=== PATIENT | male | born 1975 | race Caucasian/White ===

== ENCOUNTER → 2019-03-22 | Outpatient (CLI) | payer OTHER ==
--- NOTE | 2019-03-22 11:38 | MR ---
EXAMINATION TYPE: MR lumbar spine wo con DATE OF EXAM: 03/22/2019 COMPARISON: NONE HISTORY: Low back pain / Radiculopathy, lumbar TECHNIQUE: T1 and T2 axial and sagittal images of the lumbar spine are submitted. FINDINGS: There is no abnormal signal seen within the visualized spinal cord or paraspinal soft tissu es. Vertebral hemangioma L1. At L1-2 there is no degenerative disc disease, disc herniation, canal stenosis, or foraminal encroach ment. At L2-3 there is mild disc desiccation and loss of disc space. Mild hypertrophy of the facets. No foc al herniation. No Canal stenosis. There is mild circumferential disc bulging with mild bilateral fora edinson encroachment. At L3-4 there is no disc herniation. There is hypertrophy of the facet joints. Neural foramina remain patent bilaterally. Mild broad-based disc bulging centrally. Findings slightly greater paracentrally the right. No Canal stenosis. At L4-5 there is hypertrophy of the facets. Mild broad-based central disc bulging with flattening of the thecal sac. Neural foramina remain patent bilaterally. No focal disc herniation. At L5-S1 there is there is a disc herniation centrally and paracentrally the right with displacement of the exiting right nerve root. Degenerative disc disease noted. Neural foramina are patent. IMPRESSION: 1. There is a moderate-sized central and right paracentral disc herniation L5-S1 with displacement of the exiting nerve root in mild flattening of the thecal sac. 2. Degenerative disc disease L2-L3 and L5-S1. 3. Multilevel facet hypertrophy with disc bulging noted at L2-3 and L3-4 as discussed above with no d efinite nerve root impingement or canal stenosis.
== END | disposition home or self-care (01) ==
LOC: RADMRIMAIN 10:20
PROVIDERS: ATTEND Physical Medicine & Rehabilitation
DX: M51.86 Other intervertebral disc disorders, lumbar region (principal); M51.37 Other intervertebral disc degeneration, lumbosacral region; M47.817 Spondylosis without myelopathy or radiculopathy, lumbosacral region
CPT/HCPCS: 72148

== ENCOUNTER → 2019-09-12 | Outpatient (CLI) | payer OTHER ==
[2019-09-12 10:43] VITALS: BP 136/92; PULSE 113; RESP 20
--- NOTE | 2019-09-12 11:41 | P.PAINCN ---
History of Present Illness - Reason for Consult Consult date: 09/12/19 - History of Present Illness This is 43 years old male with a chronic history of severe low back pain, started 8 years ago, he denies any initiating event, but he reported that, he works as a director of construction, and he does a lot of physical activity and lifting, intensity of the pain increased over time, especially last year, he did physical therapy without any benefit, and he is currently on NSAIDs and Ultram and he gets minimal benefit from it, he reported that the pain is constant and localized in the low back area with occasional radiation to the lower extremity, he feels some numbness and tingling sensation in his right foot, he is able to ambulate without help, he had no weakness in the lower extremities he had no change in bowel movement or urination, he had no fever or night sweats, intensity of the pain interferes with the quality of life and his ability to do activities of daily livings, intensity of the pain 6-7/10 increased to 10 over 10 with activity. Past Medical History Past Medical History: Hyperlipidemia Additional Past Medical History / Comment(s): STATES ANTIBODIES FOR HEP C., SEIZURE X1 (OCTOBER 2018-UNKNOWN CAUSE), HX COLON POLYPS, CHRONIC BACK PAIN, HERNIATED DISCS. History of Any Multi-Drug Resistant Organisms: None Reported Past Surgical History: No Surgical Hx Reported Additional Past Surgical History / Comment(s): COLONOSCOPY WITH POLYPS Past Anesthesia/Blood Transfusion Reactions: No Reported Reaction, Motion Sickness Past Psychological History: No Psychological Hx Reported Smoking Status: Current every day smoker Past Alcohol Use History: None Reported Additional Past Alcohol Use History / Comment(s): SMOKES 3-4 CIGARETTES /DAY. STARTED AGE 19. VAPES ALSO. Past Drug Use History: Marijuana Additional Drug Use History / Comment(s): NO CURRENT MARIJUANA- STATES ON PROBATION - Past Family History Mother Family Medical History: No Reported History Medications and Allergies Home Medications Medication Instructions Recorded Confirmed Type Atorvastatin [Lipitor] 20 mg PO HS 09/11/19 09/12/19 History Cholecalciferol [Vitamin D3 (25 2,000 unit PO DAILY 09/11/19 09/12/19 History Mcg = 1000 Iu)] Ibuprofen [Motrin] 800 mg PO QID PRN 09/11/19 09/12/19 History traMADol HCL [Ultram] 50 mg PO Q6HR PRN 09/11/19 09/12/19 History Allergies Allergy/AdvReac Type Severity Reaction Status Date / Time Sulfa (Sulfonamide Allergy Unknown BURNING Verified 09/12/19 10:31 Antibiotics) STOMACH, RASH, ITCHING Physical Exam Vitals: Vital Signs Pulse Resp BP Pulse Ox 09/12/19 10:32 113 H 20 136/92 98 Social history= smoker , social EtOH, no illegal drug use REVIEW OF ORGAN SYSTEMS: CONSTITUTIONAL: No fevers or chills. No recent weight loss. EYES: denies troubles with vision. HEENT: No difficulties with hearing. No nosebleeds. No difficulty swallowing. RESPIRATORY: Denies any troubles with breathing or dyspnea on exertion. CARDIOVASCULAR: Denies any chest pain, palpitations, or recent heart attacks. GASTROINTESTINAL: Denies fatty food intolerance. Has change in bowel habits and gas bloat. GENITOURINARY: Denies any blood in urine. Has increased urinary frequency. NEUROLOGICAL: + Occasional numbness and tingling along the distal extremities. No seizure disorders or headaches. MUSCULOSKELETAL: Has back pain. SKIN:no skin cancer. No rash. PSYCHIATRIC: Denies current depression or suicidal thoughts. ENDOCRINE: Denies current thyroid disorders. Denies any blood sugar glucose intolerance. HEME/LYMPHATIC: Denies any lumps and bumps around the neck. History of deep venous thrombosis. ALLERGY/IMMUNOLOGY: No immunoglobulin therapy. No immune deficiencies. BREAST: Denies current breast lumps, pain or nipple discharge. Physical Examinations : Constitutiona : Cooperative , not in acute distress . HEENT : nech : supple , no Lymphadenopathy , normal thyroid size . : eyes no ptosis , no icterus, no photophobia . : ENT normal of hearing , normal oropharynx , no Thrush . Respiratory : Chest clear to auscultations Bilaterally , no wheezing , no Rhonchi . Cardiovascula : regular rate and rhythem , S1 , S2 , no S3 , no S4. Gastrointestina : abdomen soft no tenderness , bowel sounds , no organomegally . Genitourinary : Defferred . neurologic : Cranial nerve II to XII intact , no focal neurological deffecit . psychatric : alert , oriented X 3 , appropriate affect , intact judgment and insight . Lymphatic : no Lymphadenopathy . musculoskeltal : Lumber spine moter stegnth lower extremities ,thigh and legs 5/5 Right side , 5/5 Left side deep tendon reflexes : normal Knee Jerk , normal ankle Jerk lumber facet Loading Test= positive Right , positive Left Range of motion of the lumbar spine Flexion 30 degrees, extension 10 degrees strait leg raising test , positive at 45 degree Fabere test= positive Right , and positive left . Sever tenderness over the Sacroiliac joint on the Right , and Left sides Results Comments: MRI of the lumbar spine that [facility] 03/22/2019= L2 3 L3 4 and L4-L5, lumbar facet arthropathy, and L5-S1 lumbar disc herniation Assessment and Plan Plan: Assessment and plan=1-chronic severe low back pain secondary to lumbar spondylosis and lumbar facet arthropathy. 2-lumbar herniated disc disease. He will be a good candidate, to have diagnostic medial branch block lumbar area L2, L3, L4, L5 x2 and RFA if it is positive Patient should continue his current medication Motrin and Ultram as prescribed by his primary care Time with Patient: Greater than 30 PQRS Measure Charge Sheet Measure #130: Documentation of Current Meds in Medical Chart: Patient's medications documented in chart Measure #226: Tobacco Use: Screen & Cessation Intervention: Pt screened for tobacco use AND intervention given Measure #111: Pneumonia Vaccination: Pneumococcal vaccine NOT administered or previously given Measure #47: Advance Care Plan: Advance care planning discussed & documented, pt chose/unable to give Measure #412: Opioid Treatment Agreement: No documentation of signed opioid treatment agreement Measure #408: Opioid Therapy Follow-up Evaluation: Patient had NO f/u eval minimum every 3 months during opioid therapy Measure #317: Preventitive Care & Scrn High Bld Press & F/U: Normal blood pressure, f/u not required Measure #128: Body Mass Index (BMI) Screening & Follow-up: BMI documented within normal parameters Measure #131: Pain Assessment & Follow-up: Pain positive & plan documented, Follow-up scheduled Measure #431: Unhealthy Alcohol Use Preventative Care & Scrn: Patient not identified as an unhealthy alcohol user PQRS Narrative: Smoking Status Current every day smoker Blood Pressure 136/92 Pain Intensity [Neck] 7 Pain Intensity [Lower Back] 7 Scale Used Numeric (1 - 10) Hx Alcohol Use (MH) No Home Medications: Ambulatory Orders Atorvastatin [Lipitor] 20 mg PO HS 09/11/19 Cholecalciferol [Vitamin D3 (25 Mcg = 1000 Iu)] 2,000 unit PO DAILY 09/11/19 Ibuprofen [Motrin] 800 mg PO QID PRN 09/11/19 traMADol HCL [Ultram] 50 mg PO Q6HR PRN 09/11/19
== END | disposition home or self-care (01) ==
LOC: PNWHC3 09:30
PROVIDERS: ATTEND Specialist
DX: G89.29 Other chronic pain (principal); M51.26 Other intervertebral disc displacement, lumbar region; M47.816 Spondylosis without myelopathy or radiculopathy, lumbar region; E78.5 Hyperlipidemia, unspecified; M46.96 Unspecified inflammatory spondylopathy, lumbar region; F17.200 Nicotine dependence, unspecified, uncomplicated; Z79.1 Long term (current) use of non-steroidal anti-inflammatories (NSAID); Z79.891 Long term (current) use of opiate analgesic; Z79.899 Other long term (current) drug therapy; Z88.2 Allergy status to sulfonamides
CPT/HCPCS: 99211

== ENCOUNTER → 2020-06-04 | Outpatient (CLI) | payer OTHER ==
[2020-06-04 09:59] VITALS: BP 130/91; PULSE 90; RESP 18; TEMP 97.7
--- NOTE | 2020-06-04 10:12 | P.PN ---
Subjective Progress Note Date: 06/04/20 Spencer a 44-year-old gentleman presented today for follow-up and we'll see him in September prior to the code endemic for his low back pain. He continues to have low back pain across his back which describes a soreness and aching. He has a sharp pain she feels like a brenda is in the spine. He also describes pain shooting down his right leg into the foot. He has numbness tingling and weakness in the right leg compared to left. He denies any bowel or bladder incontinence. Denies any chest patient's of breath. Denies any neck pain or upper extremity weakness numbness tingling. He had an MRI done of his lumbar spine which showed degenerative disc disease as well as mild disc bulging. The has seen Dr. Velasco in the past and they rule out any hip joint dysfunction. 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 He is tender palpation of the lower lumbar area. Facet loading is positive bilaterally. His right straight leg raise is positive. He has pain with internal/external rotation of the hip joints which was pain in the anterior hip bilaterally. There is not a lot of pain with internal rotation. Sacroiliac joints: Nontender to palpation, JHOAN is negative, Gaenselon negative Neuro exam: Normal sensation in bilateral upper extremities, deep tendon reflexes are 2+ bilateral upper extremities. Normal sensation in bilateral lower extremities. Deep tendon reflexes are 2+ in left lower extremity, patellar reflexes 1+ compared to the left side. Psych exam: Cooperative, appropriate mood Assessment and Plan Assessment: #1 lumbar radiculopathy #2 lumbar spondylosis without myelopathy Plan: We had discussion with the patient today regarding his chronic pain and treatment plans. We discussed that since is having radicular symptoms which are more prominent than on her previous visit I would recommend a lumbar epidural steroid injection at the L4-L5 level. We'll monitor follow up with patient after that CVA continues to have low back pain with improved radicular symptoms. If the back pain persists with discussed medial branch blocks and potential radio frequency ablation in detail. The patient agrees and would like to move forward. No medications were prescribed today. The patient uses [id number] ibuprofen as needed
== END | disposition home or self-care (01) ==
LOC: PNWHC3 09:41
PROVIDERS: ATTEND Hospitalist
DX: M47.26 Other spondylosis with radiculopathy, lumbar region (principal)
CPT/HCPCS: 99211

== ENCOUNTER 2020-07-15 10:06 | Day surgery (SDC) | payer OTHER ==
[2020-07-14 10:25] VITALS: BMI 25.8
[~2020-07-15 10:06] MED LIST: LACTATED RINGERS 1,000 ML IV SCH
[2020-07-15 10:44] VITALS: RESP 16; TEMP 98.4
[2020-07-15] MEDS ORDERED: TRIAMCINOLONE ACETONIDE 40 MG/ML 1 ML VIAL ONE (11:08)
[2020-07-15] MEDS ORDERED: ROPIVACAINE 5MG/ML 20ML VIAL ONE (11:08)
[2020-07-15] MEDS ORDERED: IOPAMIDOL M200 10 ML VIAL ONE (11:08)
--- NOTE | 2020-07-15 11:23 | P.PCN ---
Date of Procedure: 07/15/20 Surgeon: Angelique Garcia Pathology: none sent Condition: stable Disposition: PACU Description of Procedure: PREOPERATIVE DIAGNOSIS: 1-Lumbar radiculopathy 2- Lumber Degenerative Disc Diseases. POSTOPERATIVE DIAGNOSIS: 1-Lumbar radiculopathy. 2-Lumbar Degenerative Disc Diseases PROCEDURE 1. Lumbar epidural steroid injection under fluoroscopic guidance at the L5-S1 level in the right paramedian approach. 2. Lumbar epidurogram. ANESTHESIA: Local with 1% lidocaine; and IV moderate conscious sedation with Versed and fentanyl EBL: Minimal PROCEDURE INDICATION: The patient with low back pain and radiculitis symptoms unresponsive to conservative treatment. Fluoroscopy was used to optimize visualization of the needle placement and to maximize safety. PROCEDURE DESCRIPTION / TECHNIQUE: The patient was seen and identified in the preoperative area. Risks, benefits, complications including but not limited to infections ,bleeding ,allergic reaction to the medications ,nerve damage and not complete pain relief , and alternatives were discussed with the patient. The patient agreed to proceed with the procedure and signed the consent. IV was started, and vital signs were stable. Patient was taken to the OR and time out was completed. The patient was placed in the prone position on procedure table and a pillow was placed under the abdomen to reduce lumbar lordosis. The lumbosacral area was prepped and draped in the usual sterile fashion with ChloraPrep.Patient was closely monitored during the procedure. Conscious sedation was used during the procedure to decrease patients anxiety. Vital signs were monitered during the entire procedure. Using anterior-posterior fluoroscopy, the L5-S1 interlaminar space was identified and the skin over this site was marked and then infiltrated with 1% lidocaine subcutaneously. Subsequently, a 20-gauge Tuohy epidural needle was inserted and advanced toward the epidural space using the Loss of resistance to air technique and guided by AP and lateral fluoroscopy. The correct needle position in the epidural space was verified with the injection of 1 mL of the water soluble contrast dye Omnipaque 180 contrast and observing an excellent epidurogram with the epidural spread of the dye, after negative aspiration for blood and CSF and in the absence of paresthesias. Again after negative aspiration, a 7 ml mixture containing 80 mg of Kenalog and 5 ml of preservative free Normal Saline, and 1 ml of preservative free ropivacaine 0.5% solution was injected and a washout of epidurogram was seen. Needle was withdrawn intact, skin was cleansed, and bandages were applied. patient tolerated procedure well and was transferred to PACU in stable condition.A copy of the needle placement picture was saved to the fluoroscopy machine. COMPLICATIONS: None DISPOSITION / PLANS: The patient was placed in a supine position and transferred to the recovery area in a stable condition for observation. There was no evidence of lower extremity motor or sensory deficit after the procedure. Patient was discharged from the recovery room after meeting discharge criteria. Home discharge instructions were given to the patient by the staff. The patient was reexamined prior to discharge. The patient will schedule a follow up in the clinic in 2-4 weeks.
[2020-07-15 11:40] VITALS: PULSE 65
[2020-07-15 11:44] VITALS: BP 103/66
--- NOTE | 2020-07-15 15:52 | FL ---
Fluoroscopy HISTORY: Pain 4 seconds fluoroscopy time supplied to the referring clinician. 2 intraoperative C-arm images docume nt the procedure. See dictated report from anesthesia.
== END 2020-07-15 11:58 | disposition home or self-care (01) ==
LOC: ORPAIN 10:06
PROVIDERS: ATTEND Anesthesiology
DX: M51.16 Intervertebral disc disorders with radiculopathy, lumbar region (principal); Z88.2 Allergy status to sulfonamides
CPT/HCPCS: 62323; J3301; Q9966; J2795

== ENCOUNTER → 2020-07-28 | Outpatient (CLI) | payer OTHER ==
[2020-07-28 10:59] VITALS: BP 120/84; PULSE 103; RESP 18; TEMP 98.1
--- NOTE | 2020-07-28 11:13 | P.PN ---
Subjective Progress Note Date: 07/28/20 This is follow-up visit for this 44 years old male with a chronic history of severe low back pain his diagnosed with lumbar herniated disc disease and lumbar spondylosis with lumbar facet arthropathy without myelopathy, recently we have done lumbar epidural steroid injections under fluoroscopy guidance, patient reports he had 0 benefit from anti-continued to have the same pain, localized in the low back area with occasional radiation to the lower extremity, he denies any motor or sensory deficit he denies any change in the bowel movement or urination denies any fever or night sweats, the pain is constant and increases with any activity interfere with the quality of life and activity of daily livings Objective - Vital Signs Vital signs: Vital Signs Temp 98.1 F 07/28/20 10:55 Pulse 103 H 07/28/20 10:55 Resp 18 07/28/20 10:55 BP 120/84 07/28/20 10:55 Pulse Ox 95 07/28/20 10:55 Intake & Output 07/27/20 07/28/20 07/28/20 18:59 06:59 18:59 Weight 81.647 kg - Exam Physical Examinations : Constitutiona : Cooperative , not in acute distress . HEENT : nech : supple , no Lymphadenopathy , normal thyroid size . : eyes no ptosis , no icterus, no photophobia . neurologic : Cranial nerve II to XII intact , no focal neurological deffecit . psychatric : alert , oriented X 3 , appropriate affect , intact judgment and insight . Lymphatic : no Lymphadenopathy . musculoskeltal : Lumber spine moter stegnth lower extremities ,thigh and legs 5/5 Right side , 5/5 Left side deep tendon reflexes : normal Knee Jerk , normal ankle Jerk lumber facet Loading Test= positive Right , positive Left Range of motion of the lumbar spine Flexion 30 degrees, extension 10 degrees strait leg raising test , positive at 45 degree Fabere test= positive Right , and positive left . Sever tenderness over the Sacroiliac joint on the Right , and Left sides Results MRI of the lumbar spine that [facility] 03/22/2019= L2 3 L3 4 and L4-L5, lumbar facet arthropathy, and L5-S1 lumbar disc herniation Assessment and Plan Plan: Assessment and plan=1-chronic severe low back pain secondary to lumbar spondylosis and lumbar facet arthropathy. 2-lumbar herniated disc disease. Patient had no benefit from lumbar epidural steroid injections He will be a good candidate, to have diagnostic medial branch block lumbar area L3, L4, L5 x2 and RFA if it is positive Patient should continue his current medication Motrin and Ultram as prescribed by his primary care Time with Patient: Greater than 30 PQRS Measure Charge Sheet Measure #130: Documentation of Current Meds in Medical Chart: Patient's medications documented in chart Measure #226: Tobacco Use: Screen & Cessation Intervention: Pt screened for tobacco use AND intervention given Measure #111: Pneumonia Vaccination: Pneumococcal vaccine NOT administered or previously given Measure #47: Advance Care Plan: Advance care planning discussed & documented, pt chose/unable to give Measure #412: Opioid Treatment Agreement: No documentation of signed opioid treatment agreement Measure #408: Opioid Therapy Follow-up Evaluation: Patient had NO f/u eval minimum every 3 months during opioid therapy Measure #317: Preventitive Care & Scrn High Bld Press & F/U: Normal blood pressure, f/u not required Measure #128: Body Mass Index (BMI) Screening & Follow-up: BMI documented within normal parameters Measure #131: Pain Assessment & Follow-up: Pain positive & plan documented, Follow-up scheduled Measure #431: Unhealthy Alcohol Use Preventative Care & Scrn: Patient not identified as an unhealthy alcohol user Time with Patient: Less than 30
== END | disposition home or self-care (01) ==
LOC: PNWHC3 10:45
PROVIDERS: ATTEND Specialist
DX: G89.29 Other chronic pain (principal); M47.816 Spondylosis without myelopathy or radiculopathy, lumbar region; M51.26 Other intervertebral disc displacement, lumbar region
CPT/HCPCS: 99211

== ENCOUNTER 2020-10-03 07:24 | Day surgery (SDC) | payer OTHER ==
[2020-09-30 11:01] VITALS: BMI 25.8
[2020-10-03 08:00] VITALS: RESP 16; TEMP 98
[2020-10-03] MEDS ORDERED: methylPREDNISolone ACETATE 40 MG/ML 1 ML VIAL ONE (08:28)
[2020-10-03] MEDS ORDERED: IOPAMIDOL M200 10 ML VIAL ONE (08:28)
[2020-10-03] MEDS ORDERED: ROPIVACAINE 5MG/ML 20ML VIAL ONE (08:28)
--- NOTE | 2020-10-03 08:41 | P.PCN ---
Date of Procedure: 10/03/20 Description of Procedure: Procedure: BILATERAL L4-5, L5-S1 Diagnosis: Lumbar spondylosis without myelopathy Anesthesia: Local Imaging: Fluoroscopy was used, images where saved to the medical record The patient was seen and examined in the [facility]. Procedure risks and benefits were fully reviewed with the patient. The goal of the procedure is to inject medication onto the medial branch or small nerves that innervate the facet joints. In this way, we can hopefully identify which of these joints, if any, may be contributing to their pain. Informed consent for procedure was obtained. The patient was taken into the office fluoroscopy procedure room and placed prone on the table. A pillow was placed under the abdomen to reduce lumbar lordosis. Vital signs were closely monitored during the procedure. The skin ov er the area was prepped with Betadine X 3 and draped in usual sterile manner. Sterile technique was observed throughout procedure. Under biplanar fluoroscopic guidance, the target injection area of the L4, L5, Sacral Ala were targeted. A 25 gauge 31/2 inch spinal needle was then placed at the most medial and superior aspect of the transverse process near the "eye of the Jarad dog". Aspiration for blood was negative. 1 cc of 0.5% Ropivacaine 40 mg of Depo- Medrol and total was injected into the targeted areas separately. [place] were withdrawn intact. No complications were noted during the procedure. The patient tolerated the procedure well. The patient was placed in supine position and transferred to the recovery area for observation and remained stable until discharged home. Home discharge instructions were given to the patient by the staff. Repeat in 2 weeks
[2020-10-03 09:01] VITALS: BP 137/95; PULSE 68
--- NOTE | 2020-10-03 09:49 | FL ---
Fluoroscopy HISTORY: Pain 7 seconds fluoroscopy time supplied to the referring clinician. 4 intraoperative C-arm images docume nt the procedure. See dictated report from anesthesia.
== END 2020-10-03 09:05 | disposition home or self-care (01) ==
LOC: ORPAIN 07:24
PROVIDERS: ATTEND Hospitalist
DX: M47.816 Spondylosis without myelopathy or radiculopathy, lumbar region (principal); Z88.2 Allergy status to sulfonamides
CPT/HCPCS: 64493; 64494; J1030; Q9966; J2795

== ENCOUNTER → 2020-10-27 | Outpatient (CLI) | payer OTHER ==
[2020-10-27 13:16] VITALS: BP 122/92; PULSE 78; RESP 18; TEMP 97.6
--- NOTE | 2020-10-27 13:24 | P.PN ---
Subjective Progress Note Date: 10/27/20 This is a 44-year-old gentleman with history of back pain with radiation to the lower extremities down to the feet as she states. The patient did not respond to epidural steroid injection and he not only 20% of relief after diagnostic lumbar medial branch block. The patient is back into using marijuana and he has noticed significant improvement in his pain. Patient denies new-onset weakness, bowel/bladder incontinence, or any other signs or symptoms of cauda equina syndrome. There are no signs of acute intoxication, and no indications of medication diversion or overuse. In addition to above, 13-point review of systems is also negative for chest pain, shortness of breath, changes in vision, changes in hearing, new onset weakness, abdominal pain, diarrhea, extreme fatigue, malaise, fever, skin changes, homicidal or suicidal ideation, or bowel or bladder incontinence. Vital Signs: Reviewed in EMR Gen: AAOx3, NAD HEENT: PERRLA,hearing grossly normal Pulm: resp unlabored Neck: supple, trachea midline Neuro exam of the lower extremities: Normal muscle strength in the lower extremities bilaterally Straight leg raising test: Lico's test: Range of motion of the lumbar spine: Facet loading test: Tenderness in the paravertebral musculature: Neuro: CN II-XII grossly intact, Imaging: Reviewed in EMR/chart Assessment: Lumbar spondylosis without myelopathy Lumbar DDD Plan: 1. Explanation: Opioid and psychological risk scores were reviewed. Diagnoses, prognoses, and multiple treatment options including but not limited to physical therapy, interventional therapies, adjuvant medical therapies, narcotic medication therapies, and surgery were discussed with the patient and all questions were answered to the patient's satisfaction. 2. Opioid agreement: Signed with the patient and the patient is warned not to use opioids while driving or before driving and not to combine opioids with benzodiazepines or alcohol. 3. Counseling: The patient was counseled extensively on SMOKING CESSATION, BODY MASS INDEX, EXERCISE. Specifically, the patient was instructed regarding the importance of smoking cessation, obesity, and exercise in the context of both chronic pain and overall health. 4. Procedures: Patient did not respond to interventional pain procedures 5. Consultations: None. The patient understands that as long as he was brought to his muscle strength in the lower extremities and as long as he is able to control his bowel and bladder there is no need for surgery however once the symptoms start to happen and he will need to see a neurosurgeon. 6. Investigations: None 7. Medications: None. The patient is using marijuana for his pain 8. Disposition: Return to clinic as needed 9. Maps were reviewed and were appropriate. Objective - Vital Signs Vital signs: Vital Signs Temp 97.6 F 10/27/20 13:11 Pulse 78 10/27/20 13:11 Resp 18 10/27/20 13:11 BP 122/92 10/27/20 13:11 Pulse Ox 99 10/27/20 13:11
== END ==
LOC: PNWHC3 13:01
PROVIDERS: ATTEND Anesthesiology
DX: M47.816 Spondylosis without myelopathy or radiculopathy, lumbar region (principal); M51.36 Other intervertebral disc degeneration, lumbar region; F17.200 Nicotine dependence, unspecified, uncomplicated
CPT/HCPCS: 99211

== ENCOUNTER → 2020-11-17 | Outpatient (CLI) | payer OTHER ==
--- NOTE | 2020-11-17 10:05 | P.PN ---
Progress Note - Text Progress Note Date: 11/17/20 This is a follow-up visit for this 44 years old male with a chronic history of severe low back pain, with radiation to the lower extremity,he is diagnosed with lumbar herniated disc disease ,and lumbar spondylosis with lumbar facet arthropathy, we have done an interventional pain management procedure lumbar epidural steroid injection, he had no benefit from it, and later on we did diagnostic medial branch block, he had only 20% improvement of his pain after the block, for this reason patient was not a candidate to have an RFA of the medial branch, the patient came here today, for follow-up visit he was very belligerent, he was yelling to the staff and myself, he is requesting a solution for this problem, I explained to him that we can't do anymore interventional pain management procedures, because he did not respond to it, the patient currently using marijuana , although certainly cannot do medication management, he could follow up with the spine surgeon for evaluation for possible surgical interventions, and patient will follow up in the pain clinic when necessary
== END ==
CPT/HCPCS: 99211

== ENCOUNTER 2020-12-15 15:12 | Emergency (ER) | payer OTHER ==
[2020-12-15 15:20] VITALS: RESP 18; TEMP 97.8
[2020-12-15] MEDS ORDERED: CYCLOBENZAPRINE 10 MG TAB PO STA (15:43)
[2020-12-15] MEDS ORDERED: methylPREDNISolone SOD SUCCI 125 MG/2 ML VIAL IM STA (15:43)
[2020-12-15] MEDS ORDERED: KETOROLAC 15 MG/ML 1 ML VIAL IM STA (15:43)
--- NOTE | 2020-12-15 16:24 | ED ---
Back Pain HPI - General Chief Complaint: Back Pain/Injury Stated Complaint: Lower Back pain Time Seen by Provider: 12/15/20 15:21 Source: patient, RN notes reviewed Limitations: no limitations - History of Present Illness Initial Comments: Patient is a 45-year-old male that presents to the emergency room with chronic back pain. He notes that he came here for symptom management as the pain is become intolerable. He notes that he does have a history of back spasms and disc disease. He notes that he does have follow-up with his primary care and a specialist towards the end of the month. He noted that he was in significant amount of pain and discomfort while lying in bed during exam and interview. He denied any new onset of weakness numbness tingling bladder or bowel i ncontinence/retention. He denied any chest pain shortness of breath headache nausea vomiting diarrhea constipation fever fatigue chills. - Related Data Home Medications Medication Instructions Recorded Confirmed Atorvastatin [Lipitor] 20 mg PO HS 09/11/19 11/14/20 Cholecalciferol [Vitamin D3 (25 2,000 unit PO DAILY 09/11/19 11/14/20 Mcg = 1000 Iu)] Ibuprofen [Motrin] 800 mg PO QID PRN 09/11/19 11/14/20 Previous Rx's Medication Instructions Recorded Cyclobenzaprine HCl 10 mg PO TID 20 Days #60 tab 12/15/20 Allergies Allergy/AdvReac Type Severity Reaction Status Date / Time Sulfa (Sulfonamide Allergy Unknown BURNING Verified 12/15/20 15:17 Antibiotics) STOMACH, RASH, ITCHING Review of Systems ROS Statement: Those systems with pertinent positive or pertinent negative responses have been documented in the HPI. ROS Other: All systems not noted in ROS Statement are negative. Past Medical History Past Medical History: Asthma, Hyperlipidemia Additional Past Medical History / Comment(s): STATES ANTIBODIES FOR HEP C., SEIZURE X1 (OCTOBER 2018-UNKNOWN CAUSE), HX COLON POLYPS, CHRONIC BACK PAIN, HERNIATED DISCS.migraines, History of Any Multi-Drug Resistant Organisms: None Reported Past Surgical History: No Surgical Hx Reported Additional Past Surgical History / Comment(s): COLONOSCOPY, pain procedures Past Anesthesia/Blood Transfusion Reactions: Motion Sickness Past Psychological History: No Psychological Hx Reported Smoking Status: Current some day smoker, Vaper Past Alcohol Use History: None Reported Past Drug Use History: Marijuana - Past Family History Mother Family Medical History: No Reported History General Exam Limitations: no limitations General appearance: alert, in no apparent distress Head exam: Present: atraumatic, normocephalic, normal inspection Eye exam: Present: normal appearance, PERRL, EOMI. Absent: scleral icterus, conjunctival injection, periorbital swelling ENT exam: Present: normal exam, mucous membranes moist Neck exam: Present: normal inspection Respiratory exam: Present: normal lung sounds bilaterally. Absent: respiratory distress, wheezes, rales, rhonchi, stridor Cardiovascular Exam: Present: regular rate, normal rhythm, normal heart sounds. Absent: systolic murmur, diastolic murmur, rubs, gallop, clicks GI/Abdominal exam: Present: soft, normal bowel sounds. Absent: distended, tenderness, guarding, rebound, rigid Extremities exam: Present: normal inspection, full ROM (With significant pain), normal capillary refill, other (Positive well leg raise test bilaterally). Absent: tenderness, pedal edema, joint swelling, calf tenderness Back exam: Present: normal inspection, tenderness (Lower back) Neurological exam: Present: alert, oriented X3, CN II-XII intact Psychiatric exam: Present: normal affect, normal mood Skin exam: Present: warm, dry, intact, normal color. Absent: rash Course Vital Signs 12/15/20 15:17 Temperature 97.8 F Pulse Rate 81 Respiratory 18 Rate Blood Pressure 127/90 O2 Sat by Pulse 98 Oximetry Medical Decision Making - Medical Decision Making Patient is a 45-year-old male complaining of chronic back pain here for symptomatic management. 15 mg of Toradol, 10 mg of cyclobenzaprine, 125 mg of methylprednisolone ordered. Case discussed with Dr. Carrillo, patient can discharge home with follow-up to primary care and specialist as planned. Disposition Clinical Impression: Mechanical back pain, Chronic back pain Disposition: HOME SELF-CARE Condition: Stable Instructions (If sedation given, give patient instructions): Chronic Back Pain (DC) Additional Instructions: Please return to the Emergency Department if symptoms worsen or any other concerns. Follow-up primary care and specialist as planned. Take muscle relaxer as prescribed. Avoid any shortness activity or lifting. Is patient prescribed a controlled substance at d/c from ED?: No Referrals: Piter Murray MD [Primary Care Provider] - 1-2 days Time of Disposition: 16:24
[2020-12-15 17:03] VITALS: BP 127/68; PULSE 70
== END 2020-12-15 17:02 | disposition home or self-care (01) ==
LOC: EC 15:12
DX: M54.9 Dorsalgia, unspecified (principal); G89.29 Other chronic pain; J45.909 Unspecified asthma, uncomplicated; E78.5 Hyperlipidemia, unspecified; F17.200 Nicotine dependence, unspecified, uncomplicated; F12.90 Cannabis use, unspecified, uncomplicated
CPT/HCPCS: 99283; 96372 ×2; J2930; J1885

== ENCOUNTER 2020-12-15 22:25 | Emergency (ER) | payer OTHER ==
[2020-12-15 22:38] VITALS: BP 143/79; PULSE 120; RESP 18; TEMP 98.1
[2020-12-15] MEDS ORDERED: KETOROLAC 15 MG/ML 1 ML VIAL IM STA (22:56)
[2020-12-15] MEDS ORDERED: ACET/COD 300 MG/30 MG STARTER PACK 6 TAB BTL PO STA (22:57)
--- NOTE | 2020-12-15 23:02 | ED ---
Back Pain HPI - General Chief Complaint: Back Pain/Injury Stated Complaint: Lower back pain Time Seen by Provider: 12/15/20 22:46 Source: patient, RN notes reviewed Limitations: no limitations - History of Present Illness Initial Comments: 45-year-old male was recently discharged from the ER back again with back pain. He notes that he does have chronic back issues. He notes that he is unsuccessful several doctors for pain medicine. He notes that he declined any narcotic pain medication to help control symptoms. He notes that he does still have a follow-up with a fire management specialist at the end of the month. He notes that his Toradol wore off so he came back because he was in significant pain he notes that he wants pain control while here. Patient denied any other new complaints or symptoms. - Related Data Home Medications Medication Instructions Recorded Confirmed Atorvastatin [Lipitor] 20 mg PO HS 09/11/19 11/14/20 Cholecalciferol [Vitamin D3 (25 2,000 unit PO DAILY 09/11/19 11/14/20 Mcg = 1000 Iu)] Ibuprofen [Motrin] 800 mg PO QID PRN 09/11/19 11/14/20 Previous Rx's Medication Instructions Recorded Cyclobenzaprine HCl 10 mg PO TID 20 Days #60 tab 12/15/20 Allergies Allergy/AdvReac Type Severity Reaction Status Date / Time Sulfa (Sulfonamide Allergy Unknown BURNING Verified 12/15/20 22:38 Antibiotics) STOMACH, RASH, ITCHING Review of Systems ROS Statement: Those systems with pertinent positive or pertinent negative responses have been documented in the HPI. ROS Other: All systems not noted in ROS Statement are negative. Past Medical History Past Medical History: Asthma, Hyperlipidemia Additional Past Medical History / Comment(s): STATES ANTIBODIES FOR HEP C., SEIZURE X1 (OCTOBER 2018-UNKNOWN CAUSE), HX COLON POLYPS, CHRONIC BACK PAIN, HERNIATED DISCS.migraines, History of Any Multi-Drug Resistant Organisms: None Reported Past Surgical History: No Surgical Hx Reported Additional Past Surgical History / Comment(s): COLONOSCOPY, pain procedures Past Anesthesia/Blood Transfusion Reactions: Motion Sickness Past Psychological History: No Psychological Hx Reported Smoking Status: Current some day smoker, Vaper Past Alcohol Use History: None Reported Past Drug Use History: Marijuana - Past Family History Mother Family Medical History: No Reported History General Exam Limitations: no limitations General appearance: alert, in no apparent distress Head exam: Present: atraumatic, normocephalic, normal inspection Eye exam: Present: normal appearance, PERRL, EOMI. Absent: scleral icterus, conjunctival injection, periorbital swelling Cardiovascular Exam: Present: regular rate, normal rhythm, normal heart sounds. Absent: systolic murmur, diastolic murmur, rubs, gallop, clicks GI/Abdominal exam: Present: soft, normal bowel sounds. Absent: distended, tenderness, guarding, rebound, rigid Extremities exam: Present: normal inspection, full ROM, normal capillary refill. Absent: tenderness, pedal edema, joint swelling, calf tenderness Back exam: Present: normal inspection, other (Positive bilateral well leg raise test.) Neurological exam: Present: alert, oriented X3, CN II-XII intact Psychiatric exam: Present: normal affect, normal mood Skin exam: Present: warm, dry, intact, normal color. Absent: rash Course Vital Signs 12/15/20 22:35 Temperature 98.1 F Pulse Rate 120 H Respiratory 18 Rate Blood Pressure 143/79 O2 Sat by Pulse 97 Oximetry Medical Decision Making - Medical Decision Making 45-year-old male seeking pain medication for symptom management of chronic back pain. 15 mg of Toradol ordered. Patient was agitated at the fact that he is having chronic pain has not been able to find any help from any doctors that he's been to. He was informed that the emergency room is not a pain clinic and that he needs to follow-up with his primary care and pain medicine doctor for chronic pain management. Case discussed with Dr. Quintanilla, patient discharge home with follow-up to primary care. Disposition Clinical Impression: Mechanical back pain, Chronic back pain Disposition: HOME SELF-CARE Condition: Stable Instructions (If sedation given, give patient instructions): Chronic Back Pain (DC) Additional Instructions: Please return to the Emergency Department if symptoms worsen or any other concerns. Follow-up with primary care in obtain a pain medicine referral. The emergency room is not a pain clinic. Avoid any strenuous activity or lifting. Is patient prescribed a controlled substance at d/c from ED?: No Referrals: Piter Murray MD [Primary Care Provider] - 1-2 days Time of Disposition: 22:59
== END 2020-12-15 23:12 | disposition home or self-care (01) ==
LOC: EC 22:25
DX: M54.5 Low back pain (principal); R45.1 Restlessness and agitation; G89.29 Other chronic pain; J45.909 Unspecified asthma, uncomplicated; E78.5 Hyperlipidemia, unspecified; G43.909 Migraine, unspecified, not intractable, without status migrainosus; F12.90 Cannabis use, unspecified, uncomplicated; F17.290 Nicotine dependence, other tobacco product, uncomplicated; Z86.19 Personal history of other infectious and parasitic diseases; Z87.19 Personal history of other diseases of the digestive system; Z79.1 Long term (current) use of non-steroidal anti-inflammatories (NSAID); Z88.2 Allergy status to sulfonamides
CPT/HCPCS: 99283; 96372; J1885

== ENCOUNTER → 2020-12-26 | Outpatient (CLI) | payer OTHER ==
--- NOTE | 2020-12-27 02:43 | MR ---
EXAMINATION TYPE: MR deanneine/lspine wo con DATE OF EXAM: 12/26/2020 COMPARISON: None HISTORY: Chronic neck kink, left and right shoulder pain that goes down both arms for 13 years. Low b ack pain that goes down both legs Multiplanar multiecho imaging of the cervical spine and lumbar spine was performed without contrast. Cervical vertebra have normal spacing and alignment. There is slight decreased signal in the disc at C6-7. There is small posterior disc bulge at C6-7 without any compromise of the spinal canal. The spi nal canal measures 10 mm at the narrowest point. Cervical spinal cord appears normal. There is no pat ma. Brainstem is intact. There is no cervical paraspinal mass. I see no cervical bony destructive pro cess. Lumbar vertebra have normal alignment. There is mild decreased signal and narrowing at L2-3 and L5-S1 discs. There is small posterior disc herniation at L5-S1. There is developmentally large spinal suze l and no lumbar spinal stenosis. Lumbar nerve roots appear normal. The lumbar neural foramina are wid scarlett patent. There is no lumbar paraspinal mass. Posterior elements are intact. IMPRESSION: Minimal degenerative disc changes at C6-7. No cervical spinal stenosis. No fracture. Mild degenerative disc changes at L2-3 and L5-S1. Small posterior L5-S1 lumbar disc herniation withou t impingement on the neural elements.
== END | disposition home or self-care (01) ==
LOC: RADMRIMAIN 21:20
PROVIDERS: ATTEND Neurological Surgery
DX: M51.27 Other intervertebral disc displacement, lumbosacral region (principal); M51.37 Other intervertebral disc degeneration, lumbosacral region; M50.223 Other cervical disc displacement at C6-C7 level
CPT/HCPCS: 72141; 72148

== ENCOUNTER → 2021-11-25 | Outpatient (CLI) | payer OTHER ==
--- NOTE | 2021-11-25 10:13 | MR ---
EXAMINATION TYPE: MR thu ray con DATE OF EXAM: 11/25/2021 7:41 AM COMPARISON: 12/26/2020 HISTORY: Chronic neck pain, pain at shoulders, difficulty breathing, cervical spondylosis, stenosis, lumbosacral spondylosis, acute miya thoracic pain Multiplanar MultiSpin echo imaging of the cervical spine was performed. C2-C3: No evidence for degenerative disc disease. No disc bulge/herniation or protrusion. No Canal stenosis. Foramina are patent bilaterally. C3-C4: No evidence for degenerative disc disease. No disc bulge/herniation or protrusion. No Canal stenosis. Foramina are patent bilaterally. C4-C5: No evidence for degenerative disc disease. No disc bulge/herniation or protrusion. No Canal stenosis. Foramina are patent bilaterally. C5-C6: No evidence for degenerative disc disease. No disc bulge/herniation or protrusion. No Canal stenosis. Foramina are patent bilaterally. C6-C7: Mild decreased signal ossified at C6-7 with posterior disc bulge. No evidence for disc herniat ion or protrusion. Overall appearance is stable. No evidence for foraminal encroachment C7-T1: No evidence for degenerative disc disease. No disc bulge/herniation or protrusion. No Canal stenosis. Foramina are patent bilaterally. Cervical segments are intact. There is normal alignment. Cervical spinal cord is of normal signal. Craniovertebral junction relationships are within normal limits. IMPRESSION: 1. Stable degenerative disc disease and disc bulging at C6-7. EXAMINATION TYPE: MR thu ray con DATE OF EXAM: 11/25/2021 7:41 AM COMPARISON: None HISTORY: Chronic neck pain, pain at shoulders, difficulty breathing, cervical spondylosis, stenosis, lumbosacral spondylosis, acute miya thoracic pain Multiplanar MultiSpin echo imaging of the thoracic spine was performed. Disc spaces: Mild degenerative disc space narrowing at T5-T6. Small left paracentral disc bulge or pr otrusion mildly effaces the ventral thecal sac with borderline cord contact. No evidence for central stenosis or myelopathy. Mild posterior disc bulge at T6-C7. Remaining levels are within normal limits . Spinal canal: No evidence for canal stenosis. No intrinsic or extrinsic lesion. Thoracic spinal cord: Thoracic spinal cord is of normal caliber and signal. Paraspinal soft tissues: No evidence for paraspinal mass. No destructive lesions seen. Vertebral segments: T10 hemangioma noted. Remaining segments are unremarkable. Mild scattered ventral spondylosis. IMPRESSION: Mild degenerative disc space narrowing at T5-T6. Small left paracentral disc bulge or protrusion mild ly effaces the ventral thecal sac with borderline cord contact.
== END | disposition home or self-care (01) ==
LOC: RADMRIMAIN 06:32
PROVIDERS: ATTEND Neurological Surgery
DX: M50.323 Other cervical disc degeneration at C6-C7 level (principal); M50.223 Other cervical disc displacement at C6-C7 level; M51.34 Other intervertebral disc degeneration, thoracic region; M51.24 Other intervertebral disc displacement, thoracic region
CPT/HCPCS: 72141; 72146

== ENCOUNTER → 2022-11-18 | Outpatient (CLI) | payer OTHER ==
[2022-11-18 11:13] VITALS: BP 124/89; PULSE 96; RESP 20; TEMP 98.1
--- NOTE | 2022-11-18 14:46 | P.PAINPG ---
PQRS Measure Charge Sheet Comment: A 46 yr old male with a history of severe and chronic LBP secondary to lumbar DDD and spondylosis with facet arthropathy without myelopathy presents today for fibromyalgia evaluation. Pain level is provoked at 7/10 in intensity, constant, localized in the [id number]-[id number] spine, achy in character w/o shooting pain. Pain is provoked by lifting, standing. Pain is alleviated with medications, cannabis use as pt states he makes his own edibles, PT in 2020 which provoked pain, injections (LESI, BL MBB L3-L5 x1) which were ineffective and rest. Pt was easily agitated in exam room, staring intensely at provider while yelling "You guys keep saying I'm ok to work" and "You guys won't help me" and "The MRIs won't acknowledge my injuries" and "The doctors won't do surgery. Dr Wing told me he won't do surgery to me or any of my friends" and "At least you get to charge my insurance and make you happy." Pt impulsively and repeatedly banged his cane on the floor making provider fear stepping out of the room which might trigger pt to block exit door with cane. Pt has a history of admitting to cannabis use (2020) which precludes narcotic medication management and was belligerent w staff in his 2020 visits as a result of this. Interventional pain procedures completed include LESI L4-L5, BL MBB L3-L5 x1 Patient is currently on Cannabis edibles he makes at home Patient denies any side effects of the medication(s), denies excessive drowsiness or sleepiness, denies suicidal ideation and reports that the current pain medication is helping to control the pain and improve activities of daily living. Patient denies any motor or sensory deficits. Patient denies any fever or night sweats, denies any change in the bowel movements or urination. Physical Examination: -Constitutional: Cooperative. Not in acute distress . - Neurologic: Cranial nerve II to XII intact. No focal neurological deficits. - Psychatric: Alert & oriented x 3. Matching mood & appropriate affect. Judgment and insight intact. - Musculoskeletal: Cervical spine: Muscle bulk/ tone/ strength in the bilateral upper extremities normal Vertebral body tenderness to palpation over Spurling test positive Distraction test positive Facet loading test positive TTP Thoracic spine Muscle bulk / tone/ strength in the bilateral paraspinal muscles normal Vertebral body tender to palpation over Facet loading test positive TTP Lumbar spine: Motor bulk/ tone/ strength lower extremities , thigh and legs : 5/5 Deep tendon reflexes : Normal Knee Jerk. Normal Ankle Jerk . Vertebral body tenderness to palpation over Lumbar Facet Loading Test positive Straight Leg Raise: positive at 30 degrees right side/ left side Gaenslen's Test positive Sacral spine : Severe tenderness over the Sacroiliac joint: right side / left side Range of motion: Flexion of the lumbar spine <60 degrees Range of motion: Extension of the lumbar spine <20 degrees Gaenslen's Test positive right side / left side Summer test: positive right side / left side Thigh Thrust Test positive right side / left side Sacral Thrust Test positive right side / left side Assessment and plan: Chronic LBP secondary to lumbar DDD, spondylosis with facet arthropathy without myelopathy Recommendation of follow up w Dr Morin. Dr George will not see him per pt. Prescription for Cymbalta. Pt is to follow up w his PCP for additional refills. Discharged from clinic due to belligerent behavior. I have spent less than 30 minutes on patient care today. Dr Ray was available by phone for the evaluation of this patient. The time was used to review the medical records including relevant urine studies and Prescription history (MAPs), review of the available imaging, evaluation and examination of the patient, coordination of care with the medical staff and if applicable referring physicians, as well as creation of the medical record - Pain Location Back Non-Pharmacological Interventions: Inactivity PQRS Narrative: Smoking Status Current every day smoker Hx Alcohol Use (MH) No Home Medications: Ambulatory Orders Atorvastatin [Lipitor] 20 mg PO HS 09/11/19 Cholecalciferol [Vitamin D3 (25 Mcg = 1000 Iu)] 2,000 unit PO DAILY 09/11/19 Ibuprofen [Motrin] 800 mg PO QID PRN 09/11/19 Cyclobenzaprine HCl 10 mg PO TID 20 Days #60 tab 12/15/20 DULoxetine HCL [Cymbalta] 20 mg PO DAILY 30 Days #30 cap 11/18/22 Controlled Substance Measures - Controlled Substance Measures Is patient prescribed a controlled substance at discharge?: No
== END ==
LOC: PNWHC3 09:54
PROVIDERS: ATTEND Anesthesiology
DX: M51.36 Other intervertebral disc degeneration, lumbar region (principal); M47.816 Spondylosis without myelopathy or radiculopathy, lumbar region; G89.29 Other chronic pain; F17.200 Nicotine dependence, unspecified, uncomplicated; Z88.2 Allergy status to sulfonamides
CPT/HCPCS: 99211

== ENCOUNTER → 2022-12-02 | Outpatient (CLI) | payer OTHER ==
--- NOTE | 2022-12-03 09:00 | MR ---
EXAMINATION TYPE: MR brain/cspine wo DATE OF EXAM: 12/02/2022 COMPARISON: None HISTORY: Acute post traumatic headache, spondylosis. CONTRAST: Performed utilizing 0 mL intravenous Gadavist gadolinium contrast. TECHNIQUE: Multiplanar, multiecho imaging on a 3.0 Natalya magnet is performed through the brain. Stud y is performed within 24 hours of arrival to the hospital. The craniovertebral junction is normal. The pituitary is normal. Diffusion-weighted imaging is performed. No abnormal hyperintensity is present to suggest an acute i ntracranial infarct or acute ischemic change. There are scattered punctate areas of hyperintensity on T2 and Inversion Recovery weighted sequences which are non-specific but can be related to microvascular ischemic changes. Ventricles and sulci are appropriate for the patient age. There is mucosal thickening opacifying the right maxillary sinus. Right septal deviation is noted. Et hmoid air cells have scattered mucosal thickening. Mild mucosal thickening through the frontal sinuse s. Mastoid air cells are clear. IMPRESSIONS: 1. No suspicious signal abnormality to account for post traumatic headache. 2. No acute or chronic intracranial abnormality. Follow-up can be performed as clinically indicated. EXAMINATION TYPE: MR brain/cspine wo DATE OF EXAM: 12/02/2022 COMPARISON: 11/25/2021 HISTORY: Acute post traumatic headache, spondylosis. CONTRAST: Performed utilizing 0 mL intravenous Gadavist gadolinium contrast. TECHNIQUE: Multiplanar multiecho imaging on a 3.0 Natalya magnet is performed through the cervical spin e. FINDINGS: The craniovertebral junction is normal. Vertebral body alignment is normal. C7-T1: No focal disc herniation or significant disc bulge is evident. No spinal canal stenosis or n eural foraminal stenosis is present. C6-7: Very minimal disc bulge present with intrathecal sac contact. No cord contact. No spinal canal stenosis or neural foraminal stenosis.. C5-6: There may be some minimal central protrusion with minimal anterior thecal sac compression. No c ord contact is evident. Small amount of subligamentous disc extension may be present at this level. N o spinal canal stenosis present. Some mild right foraminal narrowing is present.. C4-5: Minimal central protrusion with intrathecal sac contact is present. No cord contact or spinal c anal stenosis is present. Neural foramen are patent.. C3-4: Central mild anterior thecal sac compression from subligamentous disc herniation is present. No cord contact evident. No spinal canal stenosis or neural foraminal stenosis.. C2-3: No focal disc herniation or significant disc bulge is evident. No spinal canal stenosis or yenni ral foraminal stenosis is present. IMPRESSIONS: 1. Subligamentous disc herniation with mild anterior thecal sac compression C3-4, C5-6. 2. Minimal disc bulging C4-5 and C6-7. 3. Mild progression of the disc findings from comparison study.
== END | disposition home or self-care (01) ==
LOC: RADMRIMAIN 15:10
PROVIDERS: ATTEND Neurological Surgery
DX: M50.223 Other cervical disc displacement at C6-C7 level (principal); M47.812 Spondylosis without myelopathy or radiculopathy, cervical region; M43.8X2 Other specified deforming dorsopathies, cervical region; G44.311 Acute post-traumatic headache, intractable
CPT/HCPCS: 70551; 72141

== ENCOUNTER → 2022-12-04 | Outpatient (CLI) | payer OTHER ==
--- NOTE | 2022-12-05 12:37 | MR ---
EXAMINATION TYPE: MR tspine/lspine wo con DATE OF EXAM: 12/04/2022 3:33 PM CLINICAL INDICATION:Male, 46 years old with history of M47.9, Pain mid and low back COMPARISON: 11/25/2021 MRI. TECHNIQUE: Multi planar, multi sequence imaging was performed utilizing: T1-weighted, T2-weighted, a nd turbo inversion recovery imaging of the thoracic and lumbar spine. IV Contrast: None. FINDINGS: Alignment: The thoracic and lumbar vertebral bodies have preserved heights and alignment. Cord: The conus medullaris and the distal spinal cord appear unremarkable with regards to their signa l intensity and morphology. Bones/Discs: Mild heterogenous signal within the T9 vertebral body could represent focal fat versus h emangioma. Disc signal is grossly maintained. There may be minimal disc desiccation scattered through out the spine most pronounced and lumbar spine L2-L3. Mild scattered osteophyte formation. Disc heigh t is grossly maintained. Scattered facet joint arthropathy throughout the spine. L1 vertebral body fo tian fatty marrow versus hemangioma. THORACIC: T5-T6 osteophyte which impresses upon the spinal cord. Spinal cord signal maintained. No ev idence additional significant spinal canal or neural foraminal stenosis. Spinal cord is within normal limits. The remainder of the spinal cord levels are patent. The neural foramen are patent. LUMBAR: T12-L1: No evidence of significant spinal canal stenosis or neural foraminal stenosis. L1-L2: No evidence of significant spinal canal stenosis or neural foraminal stenosis. L2-L3: No evidence of significant spinal canal stenosis or neural foraminal stenosis. L3-L4: No evidence of significant spinal canal stenosis or neural foraminal stenosis. L4-L5: No evidence of significant spinal canal stenosis or neural foraminal stenosis. L5-S1: The disc is rounded posterior morphology without significant spinal canal stenosis. Facet join t arthropathy without significant neural foraminal stenosis. Other findings: None. IMPRESSION: 1. No definitive evidence of disc herniation or significant spinal canal stenosis within the thoraci c or lumbar spine. 2. Osteophyte at T5-T6 impresses upon the left spinal cord. Cord signal is maintained. 3. Mild disc degeneration with associated osteoarthritic changes.
== END | disposition home or self-care (01) ==
LOC: RADMRIMAIN 13:57
PROVIDERS: ATTEND Neurological Surgery
DX: M51.36 Other intervertebral disc degeneration, lumbar region (principal); M25.78 Osteophyte, vertebrae; M47.816 Spondylosis without myelopathy or radiculopathy, lumbar region
CPT/HCPCS: 72146; 72148